=== PATIENT | male | born 1985 | race Caucasian/White ===

== ENCOUNTER 2022-01-12 12:59 | Emergency (ER) | payer OTHER ==
[~2022-01-12] VITALS: Ht 188 cm; Wt 122.5 kg
[2022-01-12] MEDS ORDERED: NEOMYCIN-BACITRACIN-POLYM 15GM TOP OINT TOP SCH (14:00)
[2022-01-12 14:17] VITALS: BP 153/96
[2022-01-12] MEDS ORDERED: BACITRACIN TOP OINT 1 UD PKG TOP ONE (14:28)
== END 2022-01-12 14:52 | disposition home or self-care (01) ==
LOC: ER 12:59
DX: S60.512A Abrasion of left hand, initial encounter (principal); W01.0XXA Fall on same level from slipping, tripping and stumbling without subsequent striking against object, initial encounter; Y93.89 Activity, other specified; Y92.89 Other specified places as the place of occurrence of the external cause; Y99.8 Other external cause status

== ENCOUNTER 2023-01-26 09:09 | Emergency (ER) | payer BC, OTHER ==
[~2023-01-26] VITALS: Ht 188 cm; Wt 129.7 kg
[2023-01-26 09:52] VITALS: BP 136/86
== END 2023-01-26 10:35 | disposition home or self-care (01) ==
LOC: ER 09:09
DX: S93.402A Sprain of unspecified ligament of left ankle, initial encounter (principal); X50.9XXA Other and unspecified overexertion or strenuous movements or postures, initial encounter; Y93.89 Activity, other specified; Y92.89 Other specified places as the place of occurrence of the external cause; Y99.8 Other external cause status
CPT/HCPCS: 29515; 73610; 73630